=== PATIENT | female | born 1935 | race Caucasian/White ===

== ENCOUNTER 2016-09-08 17:53 | Emergency (ER) | payer OTHER ==
[~2016-09-08] VITALS: Ht 165.1 cm; Wt 63.6 kg
[2016-09-08 18:17] VITALS: Ht 165.1 cm; Wt 63.6 kg
[2016-09-08] MEDS ORDERED: SOD CHLORIDE 0.9% 1,000 ML IV STA (18:52)
[2016-09-08] MEDS ORDERED: LORAZEPAM 2 MG INJ IV ONE (19:00)
[2016-09-08 19:33] LABS: ADD UMIC YES; URINE BILIRUBIN (Dip) NEGATIVE (NEGATIVE); URINE BLOOD (Dip) TRACE (NEGATIVE); URINE COLOR LT. YELLOW (YELLOW); URINE GLUCOSE (Dip) NEGATIVE (NEGATIVE); URINE KETONES (Dip) TRACE (NEGATIVE); URINE LEUKOCYTE ESTERASE (Dip) TRACE (NEGATIVE); URINE NITRITE (Dip) NEGATIVE (NEGATIVE); URINE TOTAL PROTEIN (Dip) NEGATIVE (NEGATIVE); URINE UROBILINOGEN (Dip) 0.2 E.U./dL (0.1-1.0)
[2016-09-08 19:37] LABS: BASOPHILS % 0.4 % (0.0-2.0); EOSINOPHILS # 0.3 10^3/ul (0.0-0.5); EOSINOPHILS % 3.9 % (0.0-7.0); HEMATOCRIT 37.7 % (37.0-47.0); HEMOGLOBIN 12.7 g/dl (12.0-16.0); LYMPHOCYTES # 2.1 10^3/ul (0.8-2.9); LYMPHOCYTES % 23.8 % (15.0-51.0); MEAN CORPUSCULAR HEMOGLOBIN 28.6 pg (29.0-33.0); MEAN CORPUSCULAR HGB CONC 33.7 g/dl (32.0-37.0); MEAN CORPUSCULAR VOLUME 84.8 fl (82.0-101.0); MEAN PLATELET VOLUME 8.2 fl (7.4-10.4); MONOCYTE # 0.6 10^3/ul (0.3-0.9); MONOCYTES % 6.7 % (0.0-11.0); NEUTROPHIL # 5.8 10^3/ul (1.6-7.5); NEUTROPHILS % 65.2 % (39.0-77.0); PLATELET COUNT 264 10^3/UL (140-440); RED BLOOD COUNT 4.44 10^6/ul (4.20-5.40); RED CELL DISTRIBUTION WIDTH 15.8 % (11.5-14.5); UNCORRECTED WBC 8.9 10^3/ul (4.8-10.8); WHITE BLOOD COUNT 8.9 10^3/ul (4.8-10.8)
--- NOTE | 2016-09-08 19:37 | RADRPT ---
PROCEDURE: CT Brain without contrast. CLINICAL INDICATION: Right-sided headache and numbness TECHNIQUE: Routine CT scan of the brain was performed on a high resolution multi detector scanner without intravenous contrast. One or more of the following dose reduction techniques were used: Auto mated exposure control; Adjustment of the mA and/or kV according to patient size; Use of iterative r econstruction technique. CTDI = 44, 44 mGy. DLP = 1160 mGy-cm. COMPARISON: No prior relevant examinations are available for comparison. FINDINGS: Hemorrhage: No evidence of intracranial hemorrhage. Acute ischemic changes: No evidence of acute ischemic changes. Mass effect/Midline shift: None. Parenchymal volume: Moderate central parenchymal volume loss is evident. Ventricular system: Concordant with parenchymal volume. Chronic changes: There are numerous and confluent areas of significant low attenuation change within the supratentorial white matter most compatible with severe chronic microvascular ischemic changes. Atherosclerotic calcifications of the cavernous portions of both internal carotid arteries are prese nt. Extracranial soft tissues: Unremarkable. Calvarium: No fractures. Paranasal sinuses: Visualized paranasal sinuses are clear. Mastoid air cells: Visualized mastoid air cells are clear. IMPRESSION: No acute intracranial abnormalities. Severe chronic-appearing microvascular ischemic changes of the supratentorial white matter. MRI of the brain may be useful for further evaluation. RPTAT: AADD .Darren Salmeron MD, MD Date Time Electronically viewed and signed by .Darren Salmeron MD, MD on 09/08/2016 19:37 .B/
[2016-09-08 19:42] LABS: CONDITION 1; INR 1.03; LH ANALYZER COMMENTS 1; PROTIME 13.5 Sec (12.2-14.2); PT RATIO 1.1
[2016-09-08 19:43] LABS: ALBUMIN 4.5 g/dl (3.3-4.9); PARTIAL THROMBOPLASTIN TIME 32.8 Sec (25.0-35.0); SQUAMOUS EPITHELIAL CELL,UR FEW; URINE RBCS 0-2 /HPF (0)
[2016-09-08 19:44] LABS: POTASSIUM 3.7 mmol/L (3.5-5.1)
[2016-09-08 19:46] LABS: ALBUMIN/GLOBULIN RATIO 1.4; BILIRUBIN,INDIRECT 0.3 mg/dl (0-1.1); BILIRUBIN,TOTAL 0.3 mg/dl (0.2-1.3); CREATININE 1.03 mg/dl (0.44-1.00); TOTAL PROTEIN 7.7 g/dl (6.1-8.1)
[2016-09-08 19:47] LABS: CALCIUM 9.8 mg/dl (8.4-10.2)
[2016-09-08] MEDS ORDERED: SOD CHLORIDE 0.9% 500 ML IV STA (19:49)
--- NOTE | 2016-09-08 19:53 | ERD ---
ER Documentation Chief Complaint Date/Time DATE: 09/08/16 TIME: 19:49 Chief Complaint anxiety with facial numbness HPI This is a very pleasant 80-year-old female with a known history of anxiety presents to the emergency department complaining of a sudden onset of numbness and tingling to her right upper extremity and face that occurred roughly 1 hour prior to arrival. She stated this lasted for roughly 10 minutes and spontaneously resolved. She was expensing palpitations and anxiousness at the time of her symptoms and states she has had previous anxiety attacks in the past with similar symptoms. She did not have any antianxiety medication to take. She is currently visiting her family from [place]. She denies any shortness of breath at rest or exertion. She denies a headache. She denies any weakness of her upper or lower extremities. She has no chest pain or pressure that radiates to the neck or back or jaw. ROS All systems reviewed and are negative except as per history of present illness. Allergies Allergies: Coded Allergies: No Known Allergy (Unverified , 09/08/16) PMhx/Soc History of Surgery: Yes (HYSTERECTOMY) Anesthesia Reaction: No Hx Neurological Disorder: No Hx Respiratory Disorders: No Hx Cardiac Disorders: Yes (HTN) Hx Psychiatric Problems: No Hx Miscellaneous Medical Probl: No Hx Alcohol Use: No Hx Substance Use: No Hx Tobacco Use: No Smoking Status: Never smoker Physical Exam Vitals Vital Signs Date Time Temp Pulse Resp B/P Pulse Ox O2 Delivery O2 Flow Rate FiO2 09/08/16 18:17 98.7 88 16 120/92 100 Physical Exam Constitutional:Well-developed. Well-nourished. Patient very polite but did appear anxious speaking very rapidly HEENT:Normocephalic. Atraumatic.Pupils were equal round reactive to light. Dry mucous membranes.No tonsillar exudates. Neck: No nuchal rigidity. No lymphadenopathy. No posterior cervical spine tenderness or step-offs. Respiratory: Not using accessory muscles of respiration.Lungs were clear to auscultation bilaterally. No rhonchi. No rales. No wheezing. Cardiovascular: Regular rate regular rhythm.No murmurs. No rubs were appreciated.S1, S2 normal. Distal pulses are palpable 2+ bilaterally. GI: Abdomen was soft. Nontender. Non Distended. No pulsatile abdominal masses or bruits. No rebound. No guarding. Bowel sounds were present and normal. Muscle skeletal: Full range of motion of both the upper and lower extremities bilaterally.Normal muscle tone.No assymetrical calf tenderness or swelling. Skin: No petechia, no purpura. No lesions on the palms or the soles of the feet. No maculopapular rash. NEURO: Patient was alert, awake, orientated x3.No facial droop. Gait observed and normal with no ataxia.Speech had regular rate and rhythm. No focal neurological deficits. Romberg sign negative and no pronator drift. Result Diagram: 09/08/16191709/08/161917 Results 24 hrs Laboratory Tests Test 09/08/16 19:18 Activated Partial Thromboplast Time 32.8Sec Alanine Aminotransferase (ALT/SGPT) 28IU/L Albumin 4.5g/dl Albumin/Globulin Ratio 1.40 Alkaline Phosphatase 100IU/L Anion Gap 19 Aspartate Amino Transf (AST/SGOT) 31IU/L Basophils # 0.010^3/ul Basophils % 0.4% Blood Morphology Comment Blood Urea Nitrogen 22mg/dl Calcium Level 9.8mg/dl Carbon Dioxide Level 28mmol/L Chloride Level 99mmol/L Creatinine 1.03mg/dl Direct Bilirubin 0.00mg/dl Eosinophils # 0.310^3/ul Eosinophils % 3.9% Globulin 3.20g/dl Glucose Level 100mg/dl Hematocrit 37.7% Hemoglobin 12.7g/dl INR International Normalized Ratio 1.03 Indirect Bilirubin 0.3mg/dl Lymphocytes # 2.110^3/ul Lymphocytes % 23.8% Mean Corpuscular Hemoglobin 28.6pg Mean Corpuscular Hemoglobin Concent 33.7g/dl Mean Corpuscular Volume 84.8fl Mean Platelet Volume 8.2fl Monocytes # 0.610^3/ul Monocytes % 6.7% Neutrophils # 5.810^3/ul Neutrophils % 65.2% Nucleated Red Blood Cells # 0.010^3/ul Nucleated Red Blood Cells % 0.0/100WBC Platelet Count 89806^3/UL Potassium Level 3.7mmol/L Prothrombin Time 13.5Sec Prothrombin Time Ratio 1.1 Red Blood Count 4.4410^6/ul Red Cell Distribution Width 15.8% Sodium Level 142mmol/L Total Bilirubin 0.3mg/dl Total Protein 7.7g/dl Troponin I Pending Urine Bilirubin NEGATIVE Urine Clarity CLEAR Urine Color LT. YELLOW Urine Glucose NEGATIVE% Urine Hemoglobin TRACE Urine Ketones TRACE Urine Leukocyte Esterase TRACE Urine Microscopic RBC 0-2/HPF Urine Microscopic WBC 0-2/HPF Urine Nitrite NEGATIVE Urine Specific [place] 1.010 Urine Squamous Epithelial Cells FEW Urine Total Protein NEGATIVE Urine Urobilinogen 0.2 E.U./dL Urine pH 5.5 White Blood Count 8.910^3/ul Current Medications Medications (Trade) Dose Ordered Sig/[place]quito Route PRN Reason Start Time Stop Time Status Last Admin Dose Admin Sodium Chloride (NS) 1,000 ml @ 1,000 mls/hr Q1H STAT IV 09/08/16 18:52 09/08/16 19:51 09/08/16 19:36 Lorazepam (Ativan) 0.5 mg ONCE ONCE IV 09/08/16 19:00 09/08/16 19:01 DC 09/08/16 19:37 Procedures/MDM This patient presented to the emergency department with numbness and tingling of the right side of her face and right upper extremity just prior to arrival. A code stroke was not called given that the patient's symptoms have resolved and she was not a TPA candidate. The patient had been given IV fluids for her mild clinical dehydration and prerenal azotemia. She also received intravenous Ativan. The patient had complete resolution of her anxiousness. She prophylactically received 81 mg of aspirin p.o. and a CT scan was ordered and reviewed by myself the head and indicated the following: No acute intracranial abnormalities. Severe chronic-appearing microvascular ischemic changes of the supratentorial white matter. MRI of the brain may be useful for further evaluation. 12 Lead EKG tracing ordered and reviewed by myself showed: Normal sinus rhythm of 74 bpm and no arrhythmia. IN interval normal. QRS duration normal. No ST segment elevation No ST segment depression. No changes consistent with acute ischemia. The patient's family was at bedside. I discussed the possibility of admission for further evaluation into a transient ischemic attack however the patient stated she felt comfortable being discharged home and would rather follow up on an outpatient basis to receive an MRI. The patient was discharged home in fair condition. They were instructed to return to the emergency department at any time if there was any worsening of their condition. The patient stated they would follow up with their PCP in the next 24-48 hours to initiate a suitable medication regimen under the care of their PCP as well as to allow their PCP to monitor any drug reactions. The patient was discharged home with prescriptions after they gave informed consent to the new medication. They were also fully informed by myself on the adverse effects and adverse drug interactions in order to provide adequate safeguards to prevent possible adverse reactions to medications. Departure Diagnosis: Primary Impression: Anxiety attack Additional Impressions: Arm paresthesia, right Prerenal azotemia Condition: CATHY Bush Sep 08, 2016 19:53
[2016-09-08] MEDS ORDERED: ASPIRIN 81 MG TAB PO ONE (20:00)
[2016-09-08 20:29] LABS: TROPONIN-I 0.01 ng/ml (0.00-0.12)
[2016-09-08] MEDS ORDERED: AMLO5TAB4 PO (20:31)
[2016-09-08] MEDS ORDERED: POTA20TA15 PO (20:32)
[2016-09-08] MEDS ORDERED: BENA1TAB12 PO (20:32)
[2016-09-08 21:49] VITALS: BP 159/82; PULSE 73; RESP 16; TEMP 98.6
== END 2016-09-08 22:15 | disposition home or self-care (01) ==
LOC: E/R 17:53
DX: F41.9 Anxiety disorder, unspecified (principal); R40.2252 Coma scale, best verbal response, oriented, at arrival to emergency department; R20.2 Paresthesia of skin; R39.2 Extrarenal uremia; I10 Essential (primary) hypertension; R51 Headache; R40.2362 Coma scale, best motor response, obeys commands, at arrival to emergency department; R40.2142 Coma scale, eyes open, spontaneous, at arrival to emergency department
CPT/HCPCS: 70450; 80053; 81001; 84484; 85025; 85610; 85730; 93005; 96374; 99285; J2060; J7030; J7040; 81003